=== PATIENT | female | born 1980 | race Caucasian/White ===

== ENCOUNTER 2018-11-05 13:02 | Inpatient (IN) | payer OTHER ==
--- NOTE | 2018-11-05 13:06 | PDOC ---
History of Present Illness - General Chief Complaint: Pain, Acute Stated Complaint: RIGHT ABD PAIN Time Seen by Provider: 11/05/18 13:05 History Source: Patient Exam Limitations: No Limitations - History of Present Illness Initial Comments: 11/05/18 13:27 37 yo F with no past medical history presents with RUQ beginning this AM. Per the patient, she had RLQ pain 3 days ago and was evaluated at an ED yesterday where TVUS showed ovarian cyst, free fluid, and an elevation in WBC. Today, she states the pain migrated from her RLQ to her RUQ. The pain in the RUQ is described as sharp, 10/10, radiating to the epigastric region, with 4x N/V events (NBNB). The pain does not worsen when she eats, but in the past has had less severe pain in the RUQ when she eats "fried foods". She was able to eat cereal this morning and denies constipation or diarrhea. Per the patient, she is on her period, but denies vaginal discharge. Denies the following: fevers, chills, headaches, SOB, chest pain, hx of DVT/PE, dysuria, hematuria, increased urinary frequency, diarrhea, constipation, hematochezia, and leg pain/swelling. Shx: None Allergies: NKDA Social: Denies tobacco, alcohol, and substance abuse Meds: None Past History - Past Medical History Allergies/Adverse Reactions: Allergies Allergy/AdvReac Type Severity Reaction Status Date / Time No Known Allergies Allergy Verified 11/05/18 13:03 Home Medications: Ambulatory Orders NK [No Known Home Medication] 11/05/18 Review of Systems - Review of Systems Able to Perform ROS?: Yes Is the patient limited Samoan proficient: No Constitutional: No: Chills, Diaphoresis, Fever, Weakness HEENTM: No: Eye Pain, Recent change in vision, Ear Pain, Nose Pain, Throat Pain , Mouth Pain Respiratory: No: Cough, Shortness of Breath, Hemoptysis Cardiac (ROS): No: Chest Pain, Lightheadedness, Palpitations, Syncope, Chest Tightness ABD/GI: Yes: Abdominal Distended, Nausea, Vomiting, Abdominal cramping. No: Constipated, Diarrhea, Rectal Bleeding, Tarry Stools : No: Burning, Dysuria, Hematuria, Incontinence Musculoskeletal: No: Back Pain, Joint Pain, Neck Pain Integumentary: No: Bruising, Erythema, Rash Neurological: No: Headache, Numbness, Tingling, Tremors Psychiatric: No: Change in Appetite Endocrine: No: Unexplained Weight Gain Hematologic/Lymphatic: No: Anemia *Physical Exam - Physical Exam General Appearance: Yes: Nourished, Appropriately Dressed, Obese. No: Apparent Distress, Intoxicated HEENT: positive: EOMI, TOMMY, Normal Voice, Symmetrical, Pharynx Normal, Hearing Grossly Normal. negative: Pale Conjunctivae, Scleral Icterus (R), Scleral Icterus (L), Muffled/Hoarse voice, Pharyngeal Erythema, Tonsillar Exudate, Tonsillar Erythema, Nasal Congestion, Rhinorrhea, Excessive drooling Neck: positive: Trachea midline, Supple. negative: Tender, Lymphadenopathy (R) , Lymphadenopathy (L), Tender lateral, Tender midline Respiratory/Chest: positive: Lungs Clear, Normal Breath Sounds. negative: Chest Tender, Respiratory Distress, Accessory Muscle Use, Crackles, Rales, Rhonchi, Stridor, Wheezing, Hyperresonant Cardiovascular: positive: Regular Rhythm, S1, S2, Tachycardia. negative: Systolic Murmur Gastrointestinal/Abdominal: positive: Normal Bowel Sounds, Tender (diffuse, positive murphys, worst tenderness in the RUQ upon palpation), Flat, Soft. negative: Distended, Guarding, Rebound Lymphatic: negative: Adenopathy Musculoskeletal: positive: Normal Inspection. negative: CVA Tenderness, Vertebral Tenderness Extremity: positive: Normal Capillary Refill, Normal Inspection, Normal Range of Motion. negative: Tender, Swelling, Calf Tenderness Integumentary: positive: Normal Color, Dry, Warm Neurologic: positive: mental health coordinator II-XII NML intact, Fully Oriented, Alert, Normal Mood/ Affect, Normal Response, Motor Strength 10/31 ED Treatment Course - LABORATORY CBC & Chemistry Diagram: 11/06/18 07:15 11/06/18 07:15 Medical Decision Making - Medical Decision Making 37 yo F with no past medical history presents with RUQ beginning this AM. Per the patient, she had RLQ pain 3 days ago and was evaluated at an ED yesterday where TVUS showed ovarian cyst, free fluid, and an elevation in WBC. Initial vitals; Initial Vital Signs Temp Pulse Resp BP Pulse Ox 98.3 F 116 H 18 131/93 100 11/05/18 13:03 11/05/18 13:03 11/05/18 13:03 11/05/18 13:03 11/05/18 13:03 Work up: ddx: cholelithiasis vs cholecystitis vs gastritis vs pancreatitis vs GERD vs appendicitis (lower on ddx due to RLQ pain ceasing and primarily in the RUQ), UTI vs nephrolithiasis vs pyelonephritis Laboratory Tests 11/05/18 11/05/18 11/05/18 13:32 13:32 14:09 WBC 13.4 H RBC 4.69 Hgb 12.6 Hct 38.3 MCV 81.6 MCH 27.0 MCHC 33.0 RDW 15.4 Plt Count 421 MPV 8.6 Absolute Neuts (auto) 11.7 Neutrophils % [employer] Neutrophils % (Manual) 82.0 Lymphocytes % [employer] Lymphocytes % (Manual) 11.0 Monocytes % [employer] Monocytes % (Manual) 5 Eosinophils % [employer] Eosinophils % (Manual) 2.0 Basophils % [employer] Platelet Estimate Adequate VBG pH POC VBG pCO2 POC VBG pO2 VBG HCO3 VBG O2 Sat (Gab) VBG Base Excess Sodium 139 Potassium 4.0 Chloride 105 Carbon Dioxide 18 L Anion Gap 16 BUN 15 Creatinine 0.7 Est GFR (CKD-EPI)AfAm 128.28 Est GFR (CKD-EPI)NonAf 110.69 Random Glucose 127 H Lactic Acid Calcium 9.2 Total Bilirubin 1.6 H AST 15 ALT 16 Alkaline Phosphatase 77 Total Protein 7.5 Albumin 3.5 Lipase 65 L Urine Color Red Urine Appearance Bloody Urine pH 5.5 Urine Protein 3+ H Urine Glucose (UA) Trace Urine Ketones 4+ H Urine Blood 3+ H Urine Nitrite Positive H Urine Bilirubin 3+ H Urine Urobilinogen 1.0 Ur Leukocyte Esterase Negative Urine RBC Many Urine WBC 2-5 Urine HCG, Qual Negative 11/05/18 11/05/18 15:19 15:19 WBC RBC Hgb Hct MCV MCH MCHC RDW Plt Count MPV Absolute Neuts (auto) Neutrophils % Neutrophils % (Manual) Lymphocytes % Lymphocytes % (Manual) Monocytes % Monocytes % (Manual) Eosinophils % Eosinophils % (Manual) Basophils % Platelet Estimate VBG pH 7.38 POC VBG pCO2 37.4 L POC VBG pO2 68.5 H VBG HCO3 21.3 L VBG O2 Sat (Gab) 92.8 H VBG Base Excess -2.9 L Sodium Potassium Chloride Carbon Dioxide Anion Gap BUN Creatinine Est GFR (CKD-EPI)AfAm Est GFR (CKD-EPI)NonAf Random Glucose Lactic Acid 1.3 Calcium Total Bilirubin AST ALT Alkaline Phosphatase Total Protein Albumin Lipase Urine Color Urine Appearance Urine pH Urine Protein Urine Glucose (UA) Urine Ketones Urine Blood Urine Nitrite Urine Bilirubin Urine Urobilinogen Ur Leukocyte Esterase Urine RBC Urine WBC Urine HCG, Qual Interventions: IV tylenol, fluids, reglan, zofran. 13 .4 WBC. lactic acid within normal limits. bicarb low with a 16 AG with a within normal range pH. UA shows ketones, proteins, bilirubin, and blood. negative for UTI. patient is on her menstrual cycle. US of the gallbladder reveals borderline wall thickening of the wall with biliary slude without calculi. CBD within normal limits. Patient was then administered IV contrast for elucidation of appendicitis. The CT showed a distal SBO. NG tube placed. Consult call placed to Dr. Billingsley. Admission call placed to [facility]. Patient to be transferred to [facility] given there is no OR team over the weekend and can be safely managed at [facility]. Dispo: Admit 11/06/18 09:14 *DC/Admit/Observation/Transfer Diagnosis at time of Disposition: Small bowel obstruction - Discharge Dispostion Condition at time of disposition: Stable - Referrals - Patient Instructions - Post Discharge Activity
[2018-11-05] MEDS ORDERED: ONDANSETRON 4 MG/2 ML VIAL ONE (13:14)
--- NOTE | 2018-11-05 13:20 | PDOC ---
Attending Attestation - Resident Resident Name: Travis Melendez - ED Attending Attestation I have performed the following: I have examined & evaluated the patient, The case was reviewed & discussed with the resident, I agree w/resident's findings & plan, Exceptions are as noted - HPI HPI: 11/05/18 13:17 37y F presents with RUQ that started today. Pt endorses mild lower abd discomfort starting 2-3 days ago - had gone to [place] to beevaluated, had wbc showing an elevated wbc and a pelvic US showing ovarian cysts. However the pt ntose the pain migrated from the RLQ to the RUQ, pt endorses sevearl episdoes of vomiting. denies any fever/chills, cp, sob. pt does note the pain seeems to worsen when she is eating. Pt denies any dysuria, frequencym, foul smelling urine. Currently have per period. denies hx of recent travel or sick contacts no surgical hx GENERAL: The patient is awake, alert, and fully oriented, Nontoxic - in no acute distress. HEAD: Normocephalic, atraumatic. EYES: extraocular movements intact, sclera anicteric, conjunctiva clear. ENT: Normal voice, dry mucous membranes. NECK: Normal range of motion, supple LUNGS: Breath sounds equal, clear to auscultation bilaterally. No wheezes, no rhonchi, no rales. HEART: tachycardic normal S1 and S2 without murmur, rub or gallop. ABDOMEN: mild diffuse ttp, +rovsings, +ttp at mcbur[place] point, no cva tenderness EXTREMITIES: Normal range of motion, no edema. NEUROLOGICAL: No facial assymetry, Normal speech, PSYCH: Normal mood, normal affect. SKIN: Warm, Dry, normal turgor, ddx - cholysitits, appendicitis, will ck labs will give fluids for hydration - Physicial Exam PE: 11/07/18 16:36 ee above - Medical Decision Making 11/05/18 15:33 l;abs reviewed noted for leukocytosis bicarb low - will ck vbg and lactic acid ua is nitrite +, +ketones - possibly starvation - will continue to hydrate - no glucosuria to suggest dka 11/05/18 18:14 ct cw obstruction pt currently feels well dw dr. meade and dr. jauregui will transfer to [facility] for further management
[2018-11-05] MEDS ORDERED: SODIUM CHLORIDE 1,000 ML IV STA ×2 (13:26→15:30)
[2018-11-05] MEDS ORDERED: ONDANSETRON 4 MG/2 ML VIAL IVPUSH ONE (13:26)
[2018-11-05] MEDS ORDERED: ACETAMINOPHEN 1000 MG/100 ML VIAL (NON FORMULARY) IVPB ONE (13:26)
[2018-11-05] MEDS ORDERED: ACETAMINOPHEN INJECTION 100 ML IVPB ONE (13:33)
[2018-11-05 13:49] LABS: HEMATOCRIT 38.3 % (32.4-45.2); HEMOGLOBIN 12.6 GM/dl (10.7-15.3); MEAN CELL VOLUME 81.6 fl (80-96); MEAN PLT VOLUME 8.6 fl (7.5-11.1); PLATELET COUNT 421 K/MM3 (134-434); RBC 4.69 M/mm3 (3.60-5.2); RDW 15.4 % (11.6-15.6); WHITE BLOOD COUNT 13.4 K/mm3 (4.0-10.8)
[2018-11-05 14:11] LABS: ALBUMIN 3.5 g/dl (3.4-5.0); BILIRUBIN,TOTAL 1.6 mg/dl (0.2-1); CALCIUM 9.2 mg/dl (8.5-10); CREATININE 0.7 mg/dl (0.55-1.3); TOT PROT 7.5 g/dl (6.4-8.2)
[2018-11-05 14:21] LABS: HCG,QUALITATIVE URINE NEGATIVE
[2018-11-05 14:46] LABS: PLATELET ESTIMATE ADEQUATE
[2018-11-05] MEDS ORDERED: METOCLOPRAMIDE HCL INJECTION 10 MG/2 ML VIAL IVPUSH ONE (14:59)
[2018-11-05] MEDS ORDERED: METOCLOPRAMIDE HCL INJECTION 10 MG/2 ML VIAL ONE (15:25)
[2018-11-05 17:11] LABS: VENOUS PC02 37.4 mmHg (41-51); VENOUS PH 7.38 (7.31-7.41); VENOUS PO2 68.5 mmHg (30-40)
[2018-11-05] MEDS ORDERED: SODIUM CHLORIDE 1,000 ML IV SCH (18:00)
[2018-11-05] MEDS ORDERED: LIDOCAINE HCL 2% JELLY (30 ML/TUBE) TP ONE (18:27)
[2018-11-05] MEDS ORDERED: LIDOCAINE HCL 2% JELLY (5 ML/TUBE) ONE (18:27)
--- NOTE | 2018-11-05 19:17 | PN ---
Teaching Attending Note Name of Resident: Mark Adler ATTENDING PHYSICIAN STATEMENT I saw and evaluated the patient. I reviewed the resident's note and discussed the case with the resident. I agree with the resident's findings and plan as documented. SUBJECTIVE: Patient is a 37 year old woman who presents with RUQ that started today. She also has mild lower abdominal discomfort starting 2-3 days ago - had gone to [place] to be evaluated - had elevated WBC and a Pelvic sonogram showing ovarian cysts. However the patient says the pain migrated from the RLQ to the RUQ, associated with several episodes of vomiting. Denies any fever/chills, chest pain or SOB. She says the pain seems to worsen when she is eating. Denies any dysuria, frequency or foul smelling urine. Currently having her period. Last bowel movement was 4 days ago, but she is passing flatus. No recent travel or sick contacts and no prior abdominal surgeries. OBJECTIVE: Alert Vital Signs Period Temp Pulse Resp BP Sys/Darden Pulse Ox Last 24 Hr 98.3 F-98.7 F 89-116 16-18 129-131/80-93 98-100 HEENT: No Jaundice, eye redness or discharge, PERRLA, EOMI. Normocephalic, atraumatic. External ears are normal and hearing is grossly intact. No nasal discharge. Neck: Supple, nontender. No palpable adenopathy or thyromegaly. No JVD Chest: Good effort. Clear to auscultation and percussion. Heart: Regular. No S3, rub or murmur Abdomen: Not distended, soft, diffuse tenderness and no HSM. No rebound or guarding. Normal bowel sounds. Ext: Peripheral pulses intact. No leg edema. Skin: Warm and dry. No petechiae, rash or ecchymosis. Neuro: Alert. Oriented x3. CN 2-12 grossly intact. Sensation grossly intact in all four extremities and DTR are symmetric. Psych: Appropriate mood and affect. Good insight. Current Medications Generic Name Dose Route Start Last Admin Trade Name Freq PRN Reason Stop Dose Admin Sodium Chloride 1,000 mls @ 150 mls/hr 11/05/18 18:00 11/05/18 18:00 Normal Saline - IV 150 mls/hr ASDIR JORGE Administration Home Medications Medication Instructions Recorded NK [No Known Home Medication] 11/05/18 Abnormal Lab Results 11/05/18 11/05/18 11/05/18 13:32 13:32 14:09 WBC 13.4 H POC VBG pCO2 POC VBG pO2 VBG HCO3 VBG O2 Sat (Gab) VBG Base Excess Carbon Dioxide 18 L Random Glucose 127 H Total Bilirubin 1.6 H Lipase 65 L Urine Protein 3+ H Urine Ketones 4+ H Urine Blood 3+ H Urine Nitrite Positive H Urine Bilirubin 3+ H 11/05/18 15:19 WBC POC VBG pCO2 37.4 L POC VBG pO2 68.5 H VBG HCO3 21.3 L VBG O2 Sat (Gab) 92.8 H VBG Base Excess -2.9 L Carbon Dioxide Random Glucose Total Bilirubin Lipase Urine Protein Urine Ketones Urine Blood Urine Nitrite Urine Bilirubin ASSESSMENT AND PLAN: 1. Small Bowel Obstruction - Limited abdominal sonogram showed ascites and sludge filled gall bladder. CT scan of abdomen with IV contrast showed findings consistent with distal small bowel obstruction, but did not confirm the gall bladder findings noted on the sonogram. Surgery consulted and a CT Abd/Pelvis with oral contrast being done. Due to the possibility of gall bladder disease, will treat with IV Rocephin and Flagyl, repeat WBC, trend LFTs, consult GI and consider HIDA/MRCP. Getting NGT suction and continued IV NS. CXR shows subsegmental atelectasis in left mid to lower lung and atelectasis in the right lung base. Will repeat CXR before discharge. 2. Obesity Counseled on the risks associated with obesity. Will provide patient all the necessary assistance, counseling and positive reinforcement to facilitate weight loss. Consult [facility]. 3. DVT prophylaxis - Lovenox 40 mg SQ q 12 hours. 4. Advance directives - Full code
--- NOTE | 2018-11-05 19:58 | HP ---
CHIEF COMPLAINT: pain abdomen PCP: HISTORY OF PRESENT ILLNESS: 37y F presents with RUQ that started today. Pt endorses mild lower abd discomfort starting 2-3 days ago - had gone to [place] to be evaluated, had wbc showing an elevated wbc and a pelvic US showing ovarian cysts. However the pt noticed the pain migrated from the RLQ to the RUQ, pt endorses several episdoes of vomiting brown color . denies any fever/ chills, cp, sob. pt does note the pain seems to worsen when she is eating. Pt denies any dysuria, frequency, foul smelling urine. Currently have per period. denies hx of recent travel or sick contacts. Pt states she is passing flatus and has h/o constipation last time she had bowel movement 4 days ago. No family h/o cancer, denies loss of weight and appetite no surgical history, no h/o trauma, no h/o gall stones or kidney stones ER course was notable for: (1)cbc, cmp, ct abdomen, cxr , usg abdomen (2)IV fluid. metoclopramide (3) Recent Travel: no PAST MEDICAL HISTORY: none PAST SURGICAL HISTORY: none Social History: Smoking:no Alcohol:no Drugs: no Family History: not relevant Allergies No Known Allergies Allergy (Verified 11/05/18 13:03) HOME MEDICATIONS: Home Medications Medication Instructions Recorded NK [No Known Home Medication] 11/05/18 REVIEW OF SYSTEMS CONSTITUTIONAL: Absent: fever, chills, diaphoresis, generalized weakness, malaise, loss of appetite, weight change HEENT: Absent: rhinorrhea, nasal congestion, throat pain, throat swelling, difficulty swallowing, mouth swelling, ear pain, eye pain, visual changes CARDIOVASCULAR: Absent: chest pain, syncope, palpitations, irregular heart rate, lightheadedness , peripheral edema RESPIRATORY: Absent: cough, shortness of breath, dyspnea with exertion, orthopnea, wheezing, stridor, hemoptysis GASTROINTESTINAL: Absent: abdominal pain, abdominal distension, nausea, vomiting, diarrhea, constipation, melena, hematochezia GENITOURINARY: Absent: dysuria, frequency, urgency, hesitancy, hematuria, flank pain, genital pain MUSCULOSKELETAL: Absent: myalgia, arthralgia, joint swelling, back pain, neck pain SKIN: Absent: rash, itching, pallor HEMATOLOGIC/IMMUNOLOGIC: Absent: easy bleeding, easy bruising, lymphadenopathy, frequent infections ENDOCRINE: Absent: unexplained weight gain, unexplained weight loss, heat intolerance, cold intolerance NEUROLOGIC: Absent: headache, focal weakness or paresthesias, dizziness, unsteady gait, seizure, mental status changes, bladder or bowel incontinence PSYCHIATRIC: Absent: anxiety, depression, suicidal or homicidal ideation, hallucinations. PHYSICAL EXAMINATION Vital Signs - 24 hr 11/05/18 11/05/18 11/05/18 13:03 16:07 19:20 Temperature 98.3 F 98.7 F 99.3 F Pulse Rate 116 H Pulse Rate [ 89 112 H Right] Respiratory 18 16 18 Rate Blood Pressure 131/93 Blood Pressure 129/80 132/92 [Left Arm] O2 Sat by Pulse 100 98 96 Oximetry (%) GENERAL: Awake, alert, and fully oriented, in no acute distress. HEAD: Normal with no signs of trauma. EYES: Pupils equal, round and reactive to light, extraocular movements intact, sclera anicteric, conjunctiva clear. No lid lag. EARS, NOSE, THROAT: Ears normal, nares patent, oropharynx clear without exudates. Moist mucous membranes. NECK: Normal range of motion, supple without lymphadenopathy, JVD, or masses. LUNGS: Breath sounds equal, clear to auscultation bilaterally. No wheezes, and no crackles. No accessory muscle use. HEART: Regular rate and rhythm, normal S1 and S2 without murmur, rub or gallop. ABDOMEN: Soft, generalized tender more in ruq, not distended, bowel sounds negative, no guarding, no rebound, no masses. . MUSCULOSKELETAL: Normal range of motion at all joints. No bony deformities or tenderness. No CVA tenderness. UPPER EXTREMITIES: 2+ pulses, warm, well-perfused. No cyanosis. No clubbing. No peripheral edema. LOWER EXTREMITIES: 2+ pulses, warm, well-perfused. No calf tenderness. No peripheral edema. NEUROLOGICAL: Cranial nerves II-XII intact. Normal speech. Normal gait. PSYCHIATRIC: Cooperative. Good eye contact. Appropriate mood and affect. SKIN: Warm, dry, normal turgor, no rashes or lesions noted, normal capillary refill. Laboratory Results - last 24 hr 11/05/18 11/05/18 11/05/18 13:32 13:32 14:09 WBC 13.4 H RBC 4.69 Hgb 12.6 Hct 38.3 MCV 81.6 MCH 27.0 MCHC 33.0 RDW 15.4 Plt Count 421 MPV 8.6 Absolute Neuts (auto) 11.7 Neutrophils % [employer] Neutrophils % (Manual) 82.0 Lymphocytes % [employer] Lymphocytes % (Manual) 11.0 Monocytes % [employer] Monocytes % (Manual) 5 Eosinophils % [employer] Eosinophils % (Manual) 2.0 Basophils % [employer] Platelet Estimate Adequate VBG pH POC VBG pCO2 POC VBG pO2 VBG HCO3 VBG O2 Sat (Gab) VBG Base Excess Sodium 139 Potassium 4.0 Chloride 105 Carbon Dioxide 18 L Anion Gap 16 BUN 15 Creatinine 0.7 Est GFR (CKD-EPI)AfAm 128.28 Est GFR (CKD-EPI)NonAf 110.69 Random Glucose 127 H Lactic Acid Calcium 9.2 Total Bilirubin 1.6 H AST 15 ALT 16 Alkaline Phosphatase 77 Total Protein 7.5 Albumin 3.5 Lipase 65 L Urine Color Red Urine Appearance Bloody Urine pH 5.5 Urine Protein 3+ H Urine Glucose (UA) Trace Urine Ketones 4+ H Urine Blood 3+ H Urine Nitrite Positive H Urine Bilirubin 3+ H Urine Urobilinogen 1.0 Ur Leukocyte Esterase Negative Urine RBC Many Urine WBC 2-5 Urine HCG, Qual Negative 11/05/18 11/05/18 15:19 15:19 WBC RBC Hgb Hct MCV MCH MCHC RDW Plt Count MPV Absolute Neuts (auto) Neutrophils % Neutrophils % (Manual) Lymphocytes % Lymphocytes % (Manual) Monocytes % Monocytes % (Manual) Eosinophils % Eosinophils % (Manual) Basophils % Platelet Estimate VBG pH 7.38 POC VBG pCO2 37.4 L POC VBG pO2 68.5 H VBG HCO3 21.3 L VBG O2 Sat (Gab) 92.8 H VBG Base Excess -2.9 L Sodium Potassium Chloride Carbon Dioxide Anion Gap BUN Creatinine Est GFR (CKD-EPI)AfAm Est GFR (CKD-EPI)NonAf Random Glucose Lactic Acid 1.3 Calcium Total Bilirubin AST ALT Alkaline Phosphatase Total Protein Albumin Lipase Urine Color Urine Appearance Urine pH Urine Protein Urine Glucose (UA) Urine Ketones Urine Blood Urine Nitrite Urine Bilirubin Urine Urobilinogen Ur Leukocyte Esterase Urine RBC Urine WBC Urine HCG, Qual ASSESSMENT/PLAN: 37 y/o F came to er with complaint of pain abdomen and diagnosed with bowel obstruction Small bowel obstruction IV fluid NG tube NG output monitoring NPO Monitor electrolytes surgery consult monitor vitals monitor intake output. Pain control and anti emetic prn type and screen pt/inr Fluid : LR electrolytes repeat in am nutrition npo for now dvt pro gi pro: protonix dispo: med surg. Visit type - Emergency Visit Emergency Visit: Yes ED Registration Date: 11/05/18 Care time: The patient presented to the Emergency Department on the above date and was hospitalized for further evaluation of their emergent condition. - New Patient This patient is new to me today: Yes Date on this admission: 11/06/18 - Critical Care Critical Care patient: No
[2018-11-05] MEDS ORDERED: ONDANSETRON 4 MG/2 ML VIAL IVPB PRN (22:11)
[2018-11-05] MEDS ORDERED: PANTOPRAZOLE SODIUM 40 MG VIAL IVPUSH ONE (22:11)
[2018-11-05] MEDS: LACTATED RINGERS SOLUTION 1,000 ML IV SCH (23:02)
[2018-11-06] MEDS: ACETAMINOPHEN 1000 MG/100 ML VIAL (NON FORMULARY) IVPB PRN ×3 (03:28→19:55)
[2018-11-06] MEDS: LACTATED RINGERS SOLUTION 1,000 ML IV SCH (04:38)
[2018-11-06] MEDS: HEPARIN NA (PORCINE) 5,000 UNITS/ML 1ML VIAL SQ SCH ×3 (05:48→21:10)
[2018-11-06] MEDS ORDERED: D5-1/2NS+10 MEQ KCL - 10 MEQ/1,000 ML INFUS.BAG IV SCH (06:45)
[2018-11-06 08:12] LABS: BASO % 0.4 % (0-2.0); EOS % 1.5 % (0-4.5); HEMATOCRIT 34.1 % (32.4-45.2); HEMOGLOBIN 11.1 GM/dL (10.7-15.3); LYMPH % 10.7 % (8-40); MCH 26.3 pg (25.7-33.7); MCHC 32.6 g/dl (32.0-36.0); MEAN CELL VOLUME 80.5 fl (80-96); MEAN PLT VOLUME 8.1 fl (7.5-11.1); MONO % 7.2 % (3.8-10.2); NEUT % 80.2 % (42.8-82.8); PLATELET COUNT 350 K/MM3 (134-434); RBC 4.23 M/mm3 (3.60-5.2); WHITE BLOOD COUNT 7.8 K/mm3 (4.0-10.0)
[2018-11-06 08:35] LABS: INR 1.16 (0.83-1.09); PROTHROMBIN TIME (PATIENT) 13.7 SEC (9.7-13.0)
[2018-11-06 08:37] LABS: ACTIVATED PTT 26.4 SECONDS (25.2-36.5)
--- NOTE | 2018-11-06 08:47 | PN ---
Progress Note (short form) - Note Progress Note: Patient is a 37yo female presented from [place] since patient was having nausea and vomiting with high grade SBO. As per patient , was at [facility] and was discharged from there and patient reports that she was told was her ovaries ruptured cyst and when she called her PCP , she was told to go to [facility] at [facility]. No fever or chill, c/o having LUQ pain 5/10, and stated that she was able to pass some gas. Vital Signs Temperature 98.3 F 11/06/18 06:00 Pulse Rate 95 H 11/06/18 06:00 Respiratory Rate 20 11/06/18 06:00 Blood Pressure 127/93 11/06/18 06:00 O2 Sat by Pulse Oximetry (%) 95 11/05/18 23:00 Initial Vital Signs Temp Pulse Resp BP Pulse Ox 98.3 F 116 H 18 131/93 100 11/05/18 13:03 11/05/18 13:03 11/05/18 13:03 11/05/18 13:03 11/05/18 13:03 GENERAL: Awake, alert, and fully oriented, in no acute distress. HEAD: Normal with no signs of trauma. EYES: Pupils equal, round and reactive to light, extraocular movements intact, sclera anicteric, conjunctiva clear. No lid lag. EARS, NOSE, THROAT: Ears normal, nares patent, oropharynx clear without exudates. Moist mucous membranes. NECK: Normal range of motion, supple without lymphadenopathy, JVD, or masses. LUNGS: Breath sounds equal, clear to auscultation bilaterally. No wheezes, and no crackles. No accessory muscle use. HEART: Regular rate and rhythm, normal S1 and S2 without murmur, rub or gallop. ABDOMEN: Soft, generalized tender more in ruq, not distended, bowel sounds negative, no guarding, no rebound, no masses. . MUSCULOSKELETAL: Normal range of motion at all joints. No bony deformities or tenderness. No CVA tenderness. EXTREMITIES: 2+ pulses, warm, well-perfused. No cyanosis. No clubbing. No peripheral edema. NEUROLOGICAL: Cranial nerves II-XII intact. Normal speech. Normal gait. PSYCHIATRIC: Cooperative. Good eye contact. Appropriate mood and affect. SKIN: Warm, dry, normal turgor, no rashes or lesions noted, normal capillary refill. CBCD WBC 7.8 K/mm3 (4.0-10.0) 11/06/18 07:15 RBC 4.23 M/mm3 (3.60-5.2) 11/06/18 07:15 Hgb 11.1 GM/dL (10.7-15.3) 11/06/18 07:15 Hct 34.1 % (32.4-45.2) 11/06/18 07:15 MCV 80.5 fl (80-96) 11/06/18 07:15 MCHC 32.6 g/dl (32.0-36.0) 11/06/18 07:15 RDW 16.0 % (11.6-15.6) H 11/06/18 07:15 Plt Count 350 K/MM3 (134-434) 11/06/18 07:15 MPV 8.1 fl (7.5-11.1) 11/06/18 07:15 CMP Sodium 140 mmol/L (136-145) 11/06/18 07:15 Potassium 3.8 mmol/L (3.5-5.1) 11/06/18 07:15 Chloride 107 mmol/L (98-107) 11/06/18 07:15 Carbon Dioxide 24 mmol/L (21-32) 11/06/18 07:15 Anion Gap 9 MMOL/L (8-16) 11/06/18 07:15 BUN 14 mg/dL (7-18) 11/06/18 07:15 Creatinine 0.5 mg/dL (0.55-1.3) L 11/06/18 07:15 Random Glucose 98 mg/dL (74-106) 11/06/18 07:15 Calcium 8.4 mg/dL (8.5-10.1) L 11/06/18 07:15 Total Bilirubin 1.2 mg/dL (0.2-1) H 11/06/18 07:15 AST 8 U/L (15-37) L 11/06/18 07:15 ALT 14 U/L (13-61) 11/06/18 07:15 Alkaline Phosphatase 69 U/L (45-117) 11/06/18 07:15 Total Protein 6.3 g/dl (6.4-8.2) L 11/06/18 07:15 Albumin 2.7 g/dl (3.4-5.0) L 11/06/18 07:15 Current Medications Generic Name Dose Route Start Last Admin Trade Name Freq PRN Reason Stop Dose Admin Acetaminophen 1,000 mg 11/05/18 22:10 11/06/18 03:28 Ofirmev Injection - IVPB 1,000 mg Q6H PRN Administration PAIN LEVEL 6-10 Heparin Sodium (Porcine) 5,000 unit 11/06/18 06:00 11/06/18 05:48 Heparin - SQ 5,000 unit TID JORGE Administration Sodium Chloride 1,000 mls @ 150 mls/hr 11/05/18 18:00 11/05/18 18:00 Normal Saline - IV 150 mls/hr ASDIR JORGE Administration Ceftriaxone Sodium 1 gm/ 50 mls @ 100 mls/hr 11/06/18 10:00 Dextrose IVPB DAILY JORGE Metronidazole 500 mg in 100 mls @ 100 mls/hr 11/06/18 10:00 Flagyl 500mg Premixed Ivpb - IVPB Q8H-IV JORGE Potassium Chloride/Dextrose/Sod Cl 10 meq in 1,000 mls @ 125 mls/hr 11/06/18 06:45 11/06/18 06:55 D5-1/2ns+10 Meq Kcl - IV 125 mls/hr ASDIR JORGE Administration Ondansetron HCl 8 mg 11/05/18 22:11 Zofran Injection IVPB Q8H PRN NAUSEA Home Medications Medication Instructions Recorded NK [No Known Home Medication] 11/05/18 CT Abdomen and pelvis: There is a small right pleural effusion also noted. A small amount of ascites is noted within the upper abdomen. There are moderately distended loops of small bowel throughout the abdomen and pelvis. Air and stool is seen within a nondistended right colon. An air-filled transverse colon is noted. The left colon is largely collapsed. This appearance is consistent with a high-grade partial SBO that has not significantly changed since a prior study of earlier in the day. The etiology of the obstruction is uncertain. The site of obstruction is most likely within the right lower quadrant but cannot be definitely determined, as well as. The liver, spleen, pancreas, adrenal glands and kidneys demonstrate no significant abnormalities. There is no evidence of pneumoperitoneum or intra-abdominal abscess. Examination of the pelvis demonstrates an enlarged uterus that most likely represents leiomyomata. There appears to be a cystic right adnexal mass, but, this is difficult to differentiate from the distended bowel loops. Pelvic ultrasonography may be warranted. There is no evidence of acute bony pathology. IMPRESSION: Findings consistent with high-grade, partial SBO that has not significantly changed since a prior study of earlier in the day. Clinical correlation and continued follow-up recommended. Please see above discussion. Reported By: Delvin Teran MD 11/06/18 0847 ASSESSMENT/PLAN: 37 y/o F came to er with complaint of pain abdomen and diagnosed with bowel obstruction # High grade partial SBO : surgeon is on the case. Gi on the case Dr. Chen seen the patient today, will send for abdominal series. Ng tube in place, monitor I's and O's. will add incentive spirometer once patient is able to do it since reported atelectasis on CT of abdomen and pelvis. LR ,IVF continue, monitor Is and Os. Ct abdomen and pelvis as above. will discontinue IV antibiotic Rocephin and Flagyl , discussed with GI. # Enlarged Uterus ; Leimyomata: reported on CT scan DVT Px: heparin sq gi px: protonix follow abdomen series. Visit type - Emergency Visit Emergency Visit: Yes ED Registration Date: 11/05/18 Care time: The patient presented to the Emergency Department on the above date and was hospitalized for further evaluation of their emergent condition. - New Patient This patient is new to me today: Yes Date on this admission: 11/06/18 - Critical Care Critical Care patient: No - Discharge Referral Referred to [facility] No
[2018-11-06 08:52] LABS: ALBUMIN 2.7 g/dl (3.4-5.0); BILIRUBIN,TOTAL 1.2 mg/dL (0.2-1); CALCIUM 8.4 mg/dL (8.5-10.1); CREATININE 0.5 mg/dL (0.55-1.3); MAGNESIUM 2.1 mg/dL (1.8-2.4); PHOSPHOROUS 2.8 mg/dL (2.5-4.9); POTASSIUM 3.8 mmol/L (3.5-5.1); TOT PROT 6.3 g/dl (6.4-8.2)
[2018-11-06] MEDS ORDERED: DEXTROSE 5%-WATER - 50 ML IVPB ONE (09:32)
[2018-11-06] MEDS ORDERED: cefTRIAXone SODIUM 1 GM VIAL ONE (09:32)
[2018-11-06] MEDS ORDERED: CEFTRIAXONE 1 GM in DEXTROSE 5%-WATER - 50 ML IVPB SCH (10:00)
--- NOTE | 2018-11-06 10:15 | CONSULT ---
- Consultation REQUESTING PROVIDER: Nora BURKS CONSULT REQUEST: We have been asked to surgically evaluate this patient for nausea and vomiting and abdominal pain. PCP:Cristhian Howard HISTORY OF PRESENT ILLNESS: ROXANE who is a 37 y/o W female who presented to the [facility] ER 11/05/18 w/recurrent abdominal pain and 24 hours previously to [place] for the same where she was txed and released; she had persistent n/v/abdominal pain which is crampy and came here; she has a h/o an ovarian cyst for which she was advised surgery and a h/o dysmenorrhea; pain/cramps improved since admission ; she has passed some gas;she denies any other GI//ENGAGEMENT DIRECTOR c/o; she recently started OCP's. PMHx: none PSHx: none Home Medications Medication Instructions Recorded NK [No Known Home Medication] 11/05/18 Allergies Allergy/AdvReac Type Severity Reaction Status Date / Time No Known Allergies Allergy Verified 11/05/18 13:03 PHYSICAL EXAM: GENERAL: Awake, alert, and fully oriented, in no acute distress. HEAD: Normal with no signs of trauma. EYES: PERRL, sclera anicteric, conjunctiva clear. ABDOMEN: Soft, slight tenderness RUQ, not distended, paucity of bowel sounds, no guarding, no rebound, no masses. No organomegaly. No hernias; no masses. MUSCULOSKELETAL: Normal ROM at all joints. No bony deformities or tenderness. No CVA tenderness. UPPER EXTREMITIES: 2+ pulses, warm, well-perfused. No cyanosis. Cap refill <2 seconds. No peripheral edema. LOWER EXTREMITIES: 2+ pulses, warm, well-perfused. No calf tenderness. No peripheral edema. NEUROLOGICAL: Normal speech, gait not observed. PSYCH: Cooperative. Good eye contact. Appropriate mood and affect. SKIN: Warm, dry, normal turgor, no rashes or lesions noted. Vital Signs Temperature 98.3 F 11/06/18 06:00 Pulse Rate 95 H 11/06/18 06:00 Respiratory Rate 20 11/06/18 06:00 Blood Pressure 127/93 11/06/18 06:00 O2 Sat by Pulse Oximetry (%) 95 11/05/18 23:00 Lab Results WBC 7.8 K/mm3 (4.0-10.0) 11/06/18 07:15 RBC 4.23 M/mm3 (3.60-5.2) 11/06/18 07:15 Hgb 11.1 GM/dL (10.7-15.3) 11/06/18 07:15 Hct 34.1 % (32.4-45.2) 11/06/18 07:15 MCV 80.5 fl (80-96) 11/06/18 07:15 MCHC 32.6 g/dl (32.0-36.0) 11/06/18 07:15 RDW 16.0 % (11.6-15.6) H 11/06/18 07:15 Plt Count 350 K/MM3 (134-434) 11/06/18 07:15 Sodium 140 mmol/L (136-145) 11/06/18 07:15 Potassium 3.8 mmol/L (3.5-5.1) 11/06/18 07:15 Chloride 107 mmol/L (98-107) 11/06/18 07:15 Carbon Dioxide 24 mmol/L (21-32) 11/06/18 07:15 Anion Gap 9 MMOL/L (8-16) 11/06/18 07:15 BUN 14 mg/dL (7-18) 11/06/18 07:15 Creatinine 0.5 mg/dL (0.55-1.3) L 11/06/18 07:15 Random Glucose 98 mg/dL (74-106) 11/06/18 07:15 Calcium 8.4 mg/dL (8.5-10.1) L 11/06/18 07:15 INR 1.16 (0.83-1.09) H 11/06/18 07:15 W/U to date reviewed including CT scans and US and blood work. IMP: ? partial SBO ? of ?? origin; no evidence of an acute surgical abdomen PLAN: NPO/IVF/NGT/serial exams and imaging studies; will f/u d/w the patient in depth. Danis Billingsley MD FACS
--- NOTE | 2018-11-06 11:26 | CON.GI ---
Consult Consult Specialty:: GI Referred by:: Dr Howard Reason for Consultation:: SBO - History of Present Illness Chief Complaint: Abdominal pain x 6 days History of Present Illness: 37 y.o. F developed abdominal pain 6 days ago, getting worse over last couple of days. Last BM 5 days ago. Seen in ER here, CT scan shows a high grade SBO without a clearly defined transition point. Colon and T.I. appear decompressed; small amount of free fluid also present. Patient is obese, no history of recent weight loss, no fevers or diarrhea to suggest Crohn's disease. Has been on NG suction since admission. States she passed small amount of flatus this a.m. - History Source History Provided By: Patient, Medical Record Limitations to Obtaining History: No Limitations - Past Medical History ...LMP: 10/30/18 ...: No - Alcohol/Substance Use Hx Alcohol Use: Yes (OCASIONAL) - Smoking History Smoking history: Never smoked Home Medications - Allergies Allergies/Adverse Reactions: Allergies Allergy/AdvReac Type Severity Reaction Status Date / Time No Known Allergies Allergy Verified 11/05/18 13:03 - Home Medications Home Medications: Ambulatory Orders NK [No Known Home Medication] 11/05/18 Physical Exam-GI Vital Signs: Vital Signs Temperature 98.3 F 11/06/18 06:00 Pulse Rate 95 H 11/06/18 06:00 Respiratory Rate 20 11/06/18 06:00 Blood Pressure 127/93 11/06/18 06:00 O2 Sat by Pulse Oximetry (%) 95 11/05/18 23:00 Constitutional: Yes: Obese ...Auscultate: Yes: Hypoactive Bowel Sounds ...Palpate: Yes: Tenderness (Mild tenderness diffusely, no rebound tenderness.) Labs: CBC, BMP 11/06/18 07:15 11/06/18 07:15 INR, PTT INR 1.16 (0.83-1.09) H 11/06/18 07:15 Imaging - Results Cat Scan: Report Reviewed, Image Reviewed Assessment/Plan SBO without any previous surgery, no history of past abdominal or pelvic infection. Concern exists for malignancy as well as the "usual suspects" of adhesions. Would continue NG suction. Once bowel is decompressed we might be able to get a better picture of the transition point with a small bowel series or a CT enterography. Case discussed with Dr Howard.
[2018-11-06] MEDS: LACTATED RINGERS SOLUTION 1,000 ML/1,000 ML INFUS.BAG IV SCH (16:53)
[2018-11-07] MEDS: LACTATED RINGERS SOLUTION 1,000 ML/1,000 ML INFUS.BAG IV SCH ×2 (01:54→15:43)
[2018-11-07] MEDS: HEPARIN NA (PORCINE) 5,000 UNITS/ML 1ML VIAL SQ SCH ×3 (06:06→21:37)
--- NOTE | 2018-11-07 10:26 | PN ---
Physical Exam: SUBJECTIVE: Patient seen and examined lying comfortably in bed states she 3-4 bowel movements today but still not passing flatus. Ng is situ total ouptut in container shows 800 OBJECTIVE: Vital Signs Period Temp Pulse Resp BP Sys/Darden Pulse Ox Last 24 Hr 98.2 F-99.4 F 80-93 16-20 118-145/75-90 GENERAL: The patient is awake, alert, and fully oriented, in no acute distress. ENT: dry mucous membranes. NECK: Trachea midline, full range of motion, supple. LUNGS: Breath sounds equal, clear to auscultation bilaterally, no wheezes, no crackles, no accessory muscle use. HEART: Regular rate and rhythm, S1, S2 without murmur, rub or gallop. ABDOMEN: Soft, nontender, bowel sounds negative , no guarding, no rebound, EXTREMITIES: 2+ pulses, warm, well-perfused, no edema. NEUROLOGICAL: Cranial nerves II through XII grossly intact. Normal speech, gait not observed. PSYCH: Normal mood, normal affect. SKIN: Warm, dry, Laboratory Results - last 24 hr 11/06/18 11/06/18 07:15 12:10 Blood Type O POSITIVE O POSITIVE Antibody Screen Negative Active Medications Generic Name Dose Route Start Last Admin Trade Name Freq PRN Reason Stop Dose Admin Acetaminophen 1,000 mg 11/05/18 22:10 11/06/18 19:55 Ofirmev Injection - IVPB 1,000 mg Q6H PRN Administration PAIN LEVEL 6-10 Heparin Sodium (Porcine) 5,000 unit 11/06/18 06:00 11/07/18 06:06 Heparin - SQ 5,000 unit TID JORGE Administration Lactated Ringer's 1,000 ml in 1,000 mls @ 125 mls/hr 11/06/18 11:45 11/07/18 01:54 Lactated Ringers Solution IV 125 mls/hr ASDIR JORGE Administration Potassium Chloride 10 meq in 100 mls @ 100 mls/hr 11/07/18 10:00 Potassium Chloride 10 Meq Premix Ivpb - IVPB 11/07/18 12:59 Q60M JORGE ASSESSMENT/PLAN: 37 y/o F came to er with complaint of pain abdomen and diagnosed with bowel obstruction Small bowel obstruction IV fluid NG output monitoring NPO Monitor electrolytes 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 Pain control and anti emetic prn try to keep k around 4.5 xray abdomen shows dilated gut loops with multiple air/fluid shadows Fluid : LR electrolytes repeat in am nutrition npo for now dvt pro dispo: med surg. Visit type - Emergency Visit Emergency Visit: Yes ED Registration Date: 11/05/18 Care time: The patient presented to the Emergency Department on the above date and was hospitalized for further evaluation of their emergent condition. - New Patient This patient is new to me today: No - Critical Care Critical Care patient: No
--- NOTE | 2018-11-07 10:38 | PN ---
Progress Note (short form) - Note Progress Note: Pt feels better this a.m. Says she had a small BM. FUA this morning (reviewed by me, no report available): persistent SBO with air- fluid levels. Some contrast has made it into colon. Plan: Continue NG suction. Surgical follow-up.
[2018-11-07] MEDS: KCL 10 MEQ IVPB 10 MEQ/100 ML INFUS.BAG IVPB SCH ×3 (11:19→20:34)
--- NOTE | 2018-11-07 15:13 | PN ---
Progress Note (short form) - Note Progress Note: Attending Surgeon Passing gas and had a BM; no c/o pain VSS AF abdo-soft; non tender Radiology-some contrast in right colon h/e SBO persists ?? IMP:SBO; ? partial of ? etiology PLAN: Continue present tx. as per orders; d/w patient and her mother. Danis Billingsley MD FACS
--- NOTE | 2018-11-07 15:40 | PN ---
Teaching Attending Note Name of Resident: Mark Adler ATTENDING PHYSICIAN STATEMENT I saw and evaluated the patient. I reviewed the resident's note and discussed the case with the resident. I agree with the resident's findings and plan as documented. SUBJECTIVE: Patient states that she feels comfortable today , canister around 800ml bilious drainage per NG tube. no fever or chill, stated that she had a bowel movement; very small amount. OBJECTIVE: Vital Signs Temperature 98.7 F 11/07/18 15:02 Pulse Rate 87 11/07/18 15:02 Respiratory Rate 18 11/07/18 15:02 Blood Pressure 138/87 11/07/18 15:02 O2 Sat by Pulse Oximetry (%) 95 11/07/18 09:00 GENERAL: Awake, alert, and fully oriented, in no acute distress. HEAD: Normal with no signs of trauma. EYES: Pupils equal, round and reactive to light, extraocular movements intact, sclera anicteric, conjunctiva clear. EARS, NOSE, THROAT: Ears normal, positive for NG-tube to low suction , Moist mucous membranes. NECK: Normal range of motion, supple without lymphadenopathy, JVD, or masses. LUNGS: Breath sounds equal, clear to auscultation bilaterally. No wheezes, and no crackles. No accessory muscle use. HEART: Regular rate and rhythm, normal S1 and S2 without murmur, rub or gallop. ABDOMEN: Soft, NT today , not distended, bowel sounds negative, no guarding, no rebound, no masses. . MUSCULOSKELETAL: Normal range of motion at all joints. No bony deformities or tenderness. No CVA tenderness. EXTREMITIES: 2+ pulses, warm, well-perfused. No cyanosis. No clubbing. No peripheral edema. NEUROLOGICAL: Cranial nerves II-XII intact. Normal speech. Normal gait. SKIN: Warm, dry, normal turgor, no rashes or lesions noted, normal capillary refill. CBCD WBC 7.8 K/mm3 (4.0-10.0) 11/06/18 07:15 RBC 4.23 M/mm3 (3.60-5.2) 11/06/18 07:15 Hgb 11.1 GM/dL (10.7-15.3) 11/06/18 07:15 Hct 34.1 % (32.4-45.2) 11/06/18 07:15 MCV 80.5 fl (80-96) 11/06/18 07:15 MCHC 32.6 g/dl (32.0-36.0) 11/06/18 07:15 RDW 16.0 % (11.6-15.6) H 11/06/18 07:15 Plt Count 350 K/MM3 (134-434) 11/06/18 07:15 MPV 8.1 fl (7.5-11.1) 11/06/18 07:15 CMP Sodium 140 mmol/L (136-145) 11/06/18 07:15 Potassium 3.8 mmol/L (3.5-5.1) 11/06/18 07:15 Chloride 107 mmol/L (98-107) 11/06/18 07:15 Carbon Dioxide 24 mmol/L (21-32) 11/06/18 07:15 Anion Gap 9 MMOL/L (8-16) 11/06/18 07:15 BUN 14 mg/dL (7-18) 11/06/18 07:15 Creatinine 0.5 mg/dL (0.55-1.3) L 11/06/18 07:15 Random Glucose 98 mg/dL (74-106) 11/06/18 07:15 Calcium 8.4 mg/dL (8.5-10.1) L 11/06/18 07:15 Total Bilirubin 1.2 mg/dL (0.2-1) H 11/06/18 07:15 AST 8 U/L (15-37) L 11/06/18 07:15 ALT 14 U/L (13-61) 11/06/18 07:15 Alkaline Phosphatase 69 U/L (45-117) 11/06/18 07:15 Total Protein 6.3 g/dl (6.4-8.2) L 11/06/18 07:15 Albumin 2.7 g/dl (3.4-5.0) L 11/06/18 07:15 Current Medications Generic Name Dose Route Start Last Admin Trade Name Freq PRN Reason Stop Dose Admin Acetaminophen 1,000 mg 11/05/18 22:10 11/06/18 19:55 Ofirmev Injection - IVPB 1,000 mg Q6H PRN Administration PAIN LEVEL 6-10 Heparin Sodium (Porcine) 5,000 unit 11/06/18 06:00 11/07/18 15:08 Heparin - SQ 5,000 unit TID JORGE Administration Lactated Ringer's 1,000 ml in 1,000 mls @ 125 mls/hr 11/06/18 11:45 11/07/18 01:54 Lactated Ringers Solution IV 125 mls/hr ASDIR JORGE Administration Home Medications Medication Instructions Recorded NK [No Known Home Medication] 11/05/18 CT Abdomen and pelvis: There is a small right pleural effusion also noted. A small amount of ascites is noted within the upper abdomen. There are moderately distended loops of small bowel throughout the abdomen and pelvis. Air and stool is seen within a nondistended right colon. An air-filled transverse colon is noted. The left colon is largely collapsed. This appearance is consistent with a high-grade partial SBO that has not significantly changed since a prior study of earlier in the day. The etiology of the obstruction is uncertain. The site of obstruction is most likely within the right lower quadrant but cannot be definitely determined, as well as. The liver, spleen, pancreas, adrenal glands and kidneys demonstrate no significant abnormalities. There is no evidence of pneumoperitoneum or intra-abdominal abscess. Examination of the pelvis demonstrates an enlarged uterus that most likely represents leiomyomata. There appears to be a cystic right adnexal mass, but, this is difficult to differentiate from the distended bowel loops. Pelvic ultrasonography may be warranted. There is no evidence of acute bony pathology. IMPRESSION: Findings consistent with high-grade, partial SBO that has not significantly changed since a prior study of earlier in the day. Clinical correlation and continued follow-up recommended. Please see above discussion. Reported By: Delvin Teran MD 11/06/18 0847 ASSESSMENT/PLAN: 37 y/o F came to er with complaint of pain abdomen and diagnosed with bowel obstruction Patient is a 37yo female presented from [place] since patient was having nausea and vomiting with high grade SBO. As per patient, was at [facility] and was discharged from there for having ovarian ruptured cyst and was told to go to [facility].admitted for having High grade SBO. # High grade partial SBO : is drainging on low suction continues , surgeon /GI, Dr. Chen. continue NG-tube to low continues suction, monitor I' s and O's. continue LR ,IVF continue. Ct abdomen and pelvis as above. discussed with will monitor for another day , will repeat the Xray of abdomen. # Enlarged Uterus ; Leimyomata: reported on CT scan DVT Px: heparin sq gi px: protonix follow abdomen series.
[2018-11-08] MEDS: HEPARIN NA (PORCINE) 5,000 UNITS/ML 1ML VIAL SQ SCH ×2 (06:07→15:20)
[2018-11-08 06:37] LABS: BASO % 0.7 % (0-2.0); EOS % 4.8 % (0-4.5); HEMATOCRIT 30.8 % (32.4-45.2); HEMOGLOBIN 10.1 GM/dL (10.7-15.3); MCH 26.3 pg (25.7-33.7); MCHC 32.9 g/dl (32.0-36.0); MEAN PLT VOLUME 7.5 fl (7.5-11.1); MONO % 7.1 % (3.8-10.2); NEUT % 68.4 % (42.8-82.8); PLATELET COUNT 335 K/MM3 (134-434); RBC 3.85 M/mm3 (3.60-5.2); RDW 15.7 % (11.6-15.6); WHITE BLOOD COUNT 5.6 K/mm3 (4.0-10.0)
[2018-11-08 07:11] LABS: ALBUMIN 2.5 g/dl (3.4-5.0); BILIRUBIN,TOTAL 0.5 mg/dL (0.2-1); CREATININE 0.4 mg/dL (0.55-1.3); POTASSIUM 3.4 mmol/L (3.5-5.1); TOT PROT 5.6 g/dl (6.4-8.2)
[2018-11-08] MEDS: KCL 10 MEQ IVPB 10 MEQ/100 ML INFUS.BAG IVPB SCH ×2 (10:00→11:51)
--- NOTE | 2018-11-08 10:00 | EKG ---
Test Reason : Blood Pressure : / mmHG Vent. Rate : 101 BPM Atrial Rate : 101 BPM P-R Int : 144 ms QRS Dur : 082 ms QT Int : 350 ms P-R-T Axes : 031 014 -20 degrees QTc Int : 453 ms SINUS TACHYCARDIA T WAVE ABNORMALITY, CONSIDER INFERIOR ISCHEMIA ABNORMAL ECG NO PREVIOUS ECGS AVAILABLE Confirmed by RODRIGO ALEXANDER MD ([id number]) on 11/08/2018 10:00:40 AM Referred By: MD MACK Confirmed By:RODRIGO ALEXANDER MD
[2018-11-08 10:24] LABS: ANISOCYTOSIS 1+; MACROCYTOSIS 0; OVALOCYTE 1+; PLATELET ESTIMATE NORMAL
[2018-11-08] MEDS: LACTATED RINGERS SOLUTION 1,000 ML/1,000 ML INFUS.BAG IV SCH ×2 (10:27→12:31)
[2018-11-08] MEDS ORDERED: POTASSIUM CHLORIDE TABS 20 MEQ TABLET.ER (FP) PO ONE (12:08)
[2018-11-08 12:20] VITALS: BMI 42.1
--- NOTE | 2018-11-08 13:25 | PN ---
Progress Note (short form) - Note Progress Note: GI follow up Patient seen and examined Labs reviewed NGT out Tolerating PO liquids Less abdominal pain +flatus, 2 bm since yesterday Vital Signs Temp 98.5 F 11/08/18 05:00 Pulse 87 11/08/18 05:00 Resp 20 11/08/18 05:00 BP 122/68 11/08/18 05:00 Pulse Ox 95 11/07/18 09:00 NAD obese soft NT ND CBC, BMP 11/08/18 05:30 11/08/18 05:30 AXR reviewed, less prominent but still dilated small bowel loops Impression: SBO in a virgin abdomen, resolving - advance diet as tolerated - should have GI/surgical follow up on discharge
--- NOTE | 2018-11-08 13:28 | PN ---
Progress Note (short form) - Note Progress Note: 37yo F h/o SBO seen and examined at bedside. Pt currently states that she feels well, denies any abd pain or nausea. Pt has NGT in place with serous drainage. Pt denies any fever, chills. Last Vital Signs Temp Pulse Resp BP Pulse Ox 98.5 F 87 20 122/68 95 11/08/18 05:00 11/08/18 05:00 11/08/18 05:00 11/08/18 05:00 11/07/18 09:00 CBC, BMP 11/08/18 05:30 11/08/18 05:30 PE: Gen: a&O x3 Resp: breathing comfortably Abd: soft, nontender, nondistended NGT in place with yellow drainage. Problem List - Problems (1) Small bowel obstruction Assessment/Plan: Plan -pt abd appears completely benign will remove NGT bedside and start on clears. -may adv diet as tolerated and consider discharge later today if tolerating as pt is anxious to go home. -f/up abd xray -will follow Case discussed with Dr. Billingsley who agrees with plan Code(s): K56.609 - UNSP INTESTNL OBST, UNSP TO PARTIAL VERSUS COMPLETE OBST
--- NOTE | 2018-11-08 14:09 | PN ---
Progress Note (short form) - Note Progress Note: Attending Surgeon Seen in f/u; passing flatus and BM; tolerated clear liquids VSS AF abdo-soft; NT not distended; non tympanitic IMP: improved PLAN:Advance diet as tolerated. Danis Billingsley MD FACS
--- NOTE | 2018-11-08 14:13 | PN ---
Teaching Attending Note Name of Resident: Orlin Nowak ATTENDING PHYSICIAN STATEMENT I saw and evaluated the patient. I reviewed the resident's note and discussed the case with the resident. I agree with the resident's findings and plan as documented. SUBJECTIVE: Patient is feeling better, tolerating diet with no acute distress. OBJECTIVE: Vital Signs Temperature 98.4 F 11/08/18 09:00 Pulse Rate 71 11/08/18 09:00 Respiratory Rate 20 11/08/18 09:00 Blood Pressure 140/79 11/08/18 09:00 O2 Sat by Pulse Oximetry (%) 98 11/08/18 09:00 GENERAL: Awake, alert, and fully oriented, in no acute distress. HEAD: Normal with no signs of trauma. EYES: Pupils equal, round and reactive to light, extraocular movements intact, sclera anicteric, conjunctiva clear. EARS, NOSE, THROAT: Ears normal, positive for NG-tube to low suction , Moist mucous membranes. NECK: Normal range of motion, supple without lymphadenopathy, JVD, or masses. LUNGS: Breath sounds equal, clear to auscultation bilaterally. No wheezes, and no crackles. No accessory muscle use. HEART: Regular rate and rhythm, normal S1 and S2 without murmur, rub or gallop. ABDOMEN: Soft, NT today , not distended, bowel sounds positive, no guarding, no rebound, no masses. MUSCULOSKELETAL: Normal range of motion at all joints. No bony deformities or tenderness. No CVA tenderness. EXTREMITIES: 2+ pulses, warm, well-perfused. No cyanosis. No clubbing. No peripheral edema. NEUROLOGICAL: Cranial nerves II-XII intact. Normal speech. Normal gait. SKIN: Warm, dry, normal turgor, no rashes or lesions noted, normal capillary refill. CBCD WBC 5.6 K/mm3 (4.0-10.0) 11/08/18 05:30 RBC 3.85 M/mm3 (3.60-5.2) 11/08/18 05:30 Hgb 10.1 GM/dL (10.7-15.3) L 11/08/18 05:30 Hct 30.8 % (32.4-45.2) L 11/08/18 05:30 MCV 80.0 fl (80-96) 11/08/18 05:30 MCHC 32.9 g/dl (32.0-36.0) 11/08/18 05:30 RDW 15.7 % (11.6-15.6) H 11/08/18 05:30 Plt Count 335 K/MM3 (134-434) 11/08/18 05:30 MPV 7.5 fl (7.5-11.1) 11/08/18 05:30 CMP Sodium 141 mmol/L (136-145) 11/08/18 05:30 Potassium 3.4 mmol/L (3.5-5.1) L 11/08/18 05:30 Chloride 107 mmol/L (98-107) 11/08/18 05:30 Carbon Dioxide 25 mmol/L (21-32) 11/08/18 05:30 Anion Gap 9 MMOL/L (8-16) 11/08/18 05:30 BUN 12 mg/dL (7-18) 11/08/18 05:30 Creatinine 0.4 mg/dL (0.55-1.3) L 11/08/18 05:30 Random Glucose 78 mg/dL (74-106) 11/08/18 05:30 Calcium 8.0 mg/dL (8.5-10.1) L 11/08/18 05:30 Total Bilirubin 0.5 mg/dL (0.2-1) 11/08/18 05:30 AST 10 U/L (15-37) L 11/08/18 05:30 ALT 11 U/L (13-61) L 11/08/18 05:30 Alkaline Phosphatase 59 U/L (45-117) 11/08/18 05:30 Total Protein 5.6 g/dl (6.4-8.2) L 11/08/18 05:30 Albumin 2.5 g/dl (3.4-5.0) L 11/08/18 05:30 Current Medications Generic Name Dose Route Start Last Admin Trade Name Freq PRN Reason Stop Dose Admin Acetaminophen 1,000 mg 11/05/18 22:10 11/06/18 19:55 Ofirmev Injection - IVPB 1,000 mg Q6H PRN Administration PAIN LEVEL 6-10 Heparin Sodium (Porcine) 5,000 unit 11/06/18 06:00 11/08/18 06:07 Heparin - SQ 5,000 unit TID JORGE Administration Lactated Ringer's 1,000 ml in 1,000 mls @ 125 mls/hr 11/06/18 11:45 11/08/18 12:31 Lactated Ringers Solution IV Not Given [facility] Home Medications Medication Instructions Recorded NK [No Known Home Medication] 11/05/18 CT Abdomen and pelvis: There is a small right pleural effusion also noted. A small amount of ascites is noted within the upper abdomen. There are moderately distended loops of small bowel throughout the abdomen and pelvis. Air and stool is seen within a nondistended right colon. An air-filled transverse colon is noted. The left colon is largely collapsed. This appearance is consistent with a high-grade partial SBO that has not significantly changed since a prior study of earlier in the day. The etiology of the obstruction is uncertain. The site of obstruction is most likely within the right lower quadrant but cannot be definitely determined, as well as. The liver, spleen, pancreas, adrenal glands and kidneys demonstrate no significant abnormalities. There is no evidence of pneumoperitoneum or intra-abdominal abscess. Examination of the pelvis demonstrates an enlarged uterus that most likely represents leiomyomata. There appears to be a cystic right adnexal mass, but, this is difficult to differentiate from the distended bowel loops. Pelvic ultrasonography may be warranted. There is no evidence of acute bony pathology. IMPRESSION: Findings consistent with high-grade, partial SBO that has not significantly changed since a prior study of earlier in the day. Clinical correlation and continued follow-up recommended. Please see above discussion. Reported By: Delvin Teran MD 11/06/18 0847 ASSESSMENT/PLAN: 37 y/o F came to er with complaint of pain abdomen and diagnosed with bowel obstruction Patient is a 37yo female presented from [place] since patient was having nausea and vomiting with high grade SBO. As per patient, was at [facility] and was discharged from there for having ovarian ruptured cyst and was told to go to [facility].admitted for having High grade SBO. # High grade partial SBO : improved on clear ,full liquid diet , will discharge the patient after having early dinner. discussed with surgeon /GI, Dr. Chen.NG-tube is removed as per surgeon .repeat the Xray of abdomen improved . abdominal flat and upright less prominent Small bowel distention. no free air noted. if continues to tolerate diet will discharge the patient. # Enlarged Uterus ; Leimyomata: reported on CT scan DVT Px: heparin sq gi px: protonix
--- NOTE | 2018-11-08 15:09 | EKG ---
Test Reason : Blood Pressure : / mmHG Vent. Rate : 072 BPM Atrial Rate : 072 BPM P-R Int : 152 ms QRS Dur : 092 ms QT Int : 414 ms P-R-T Axes : 032 001 001 degrees QTc Int : 453 ms NORMAL SINUS RHYTHM WITH SINUS ARRHYTHMIA T WAVE ABNORMALITY, CONSIDER ANTERIOR ISCHEMIA ABNORMAL ECG WHEN COMPARED WITH ECG OF 05-NOV-2018 18:31, NO SIGNIFICANT CHANGE WAS FOUND Confirmed by RODRIGO ALEXANDER MD ([id number]) on 11/08/2018 3:09:00 PM Referred By: VANESSA SHERMAN Confirmed By:RODRIGO ALEXANDER MD
--- NOTE | 2018-11-08 16:48 | DS ---
Physical Exam: SUBJECTIVE: Patient seen and examined at bedside. abd improved, tolerating PO + BMs. no acute events. denies n/v/d, cp ,fever, chills OBJECTIVE: Vital Signs Period Temp Pulse Resp BP Sys/Darden Pulse Ox Last 24 Hr 98.2 F-98.9 F 60-87 20-20 122-141/62-86 98 PHYSICAL EXAM GENERAL: AOX3 NAD HEAD: Normal with no signs of trauma. EYES: Pupils equal, round and reactive to light, extraocular movements intact, sclera anicteric, conjunctiva clear. EARS, NOSE, THROAT: Ears normal, positive for NG-tube to low suction , Moist mucous membranes. NECK: Normal range of motion, supple without lymphadenopathy, JVD, or masses. LUNGS: CTAB HEART: RRR, normal S1 and S2 without murmur, rub or gallop. ABDOMEN: Soft, NT ND, bowel sounds positive, no guarding, no rebound, no masses. MUSCULOSKELETAL: Normal range of motion at all joints. No bony deformities or tenderness. No CVA tenderness. EXTREMITIES: 2+ pulses, warm, well-perfused. No cyanosis. No clubbing. No peripheral edema. NEUROLOGICAL: Cranial nerves II-XII intact. Normal speech. Normal gait. SKIN: Warm, dry, normal turgor, no rashes or lesions noted, normal capillary refill. LABS Laboratory Results - last 24 hr 11/08/18 11/08/18 05:30 05:30 WBC 5.6 RBC 3.85 Hgb 10.1 L Hct 30.8 L MCV 80.0 MCH 26.3 MCHC 32.9 RDW 15.7 H Plt Count 335 MPV 7.5 Absolute Neuts (auto) 3.8 Neutrophils % 68.4 Neutrophils % (Manual) 65.0 Band Neutrophils % 0.0 Lymphocytes % 19.0 D Lymphocytes % (Manual) 20.0 Monocytes % 7.1 Monocytes % (Manual) 7 Eosinophils % 4.8 H D Eosinophils % (Manual) 3.0 Basophils % 0.7 Basophils % (Manual) 1.0 Myelocytes % (Man) 0 Promyelocytes % (Man) 0 Blast Cells % (Manual) 0 Nucleated RBC % 0 Metamyelocytes 0 Hypochromia 0 Platelet Estimate Normal Polychromasia 1+ Poikilocytosis 0 Anisocytosis 1+ Microcytosis 1+ Macrocytosis 0 Ovalocytes 1+ Sodium 141 Potassium 3.4 L Chloride 107 Carbon Dioxide 25 Anion Gap 9 BUN 12 Creatinine 0.4 L Est GFR (CKD-EPI)AfAm 154.22 Est GFR (CKD-EPI)NonAf 133.06 Random Glucose 78 Calcium 8.0 L Total Bilirubin 0.5 AST 10 L ALT 11 L Alkaline Phosphatase 59 Total Protein 5.6 L Albumin [address] Abdomen and pelvis: There is a small right pleural effusion also noted. A small amount of ascites is noted within the upper abdomen. There are moderately distended loops of small bowel throughout the abdomen and pelvis. Air and stool is seen within a nondistended right colon. An air-filled transverse colon is noted. The left colon is largely collapsed. This appearance is consistent with a high-grade partial SBO that has not significantly changed since a prior study of earlier in the day. The etiology of the obstruction is uncertain. The site of obstruction is most likely within the right lower quadrant but cannot be definitely determined, as well as. The liver, spleen, pancreas, adrenal glands and kidneys demonstrate no significant abnormalities. There is no evidence of pneumoperitoneum or intra-abdominal abscess. Examination of the pelvis demonstrates an enlarged uterus that most likely represents leiomyomata. There appears to be a cystic right adnexal mass, but, this is difficult to differentiate from the distended bowel loops. Pelvic ultrasonography may be warranted. There is no evidence of acute bony pathology. IMPRESSION: Findings consistent with high-grade, partial SBO that has not significantly changed since a prior study of earlier in the day. Clinical correlation and continued follow-up recommended. Please see above discussion. Reported By: Delvin Teran MD 11/06/18 0847 [id number] RAD/ABDOMEN FLAT & UPRIGHT Indication: Abdominal pain, small bowel obstruction seen on yesterday's imaging. Comparison study available from 11/06/2018. Less distention of small bowel loops noted as compared to prior imaging. Contrast previously seen within the large bowel is presently noted within the rectum. Some persistent dilated loops of small bowel noted in the epigastric region. No free air noted in the upright study. Less bowel wall edema is noted on the present study. Impression: Less prominent small bowel distention as compared to prior imaging. No free air noted. Reported By: Aiden Patten MD 11/08/18 1254 HOSPITAL COURSE: Date of Admission:11/05/18 Date of Discharge: 11/08/18 37 y/o F p/w complaint of pain abdomen and diagnosed with small bowel obstruction. presented from [place] since she was having N/V with high grade SBO. As per patient, was at [facility] and was discharged from there for having ovarian ruptured cyst and was told to go to [facility].admitted for having High grade SBO. # High grade partial SBO : improved w/ conservative tx. pain ctl and NGT. imaging noted above. pt sxs now improved, NGT removed, and tolerating clear liquid diet w/ +BMs +flatus. repeat Xray of abdomen improved . abdominal flat and upright less prominent Small bowel distention. no free air noted. -GI consulted, Gustavo -Surgery consulted, Jose Cruz -pt told to f/u w/ Surgery Dr. Billingsley as outpt for re-eval. #Enlarged Uterus ; Leimyomata: reported on CT scan pt told to f/u w/ OBGYN outpt pt stable and ready for dc w/ appropriate f/u Minutes to complete discharge: 37 Discharge Summary Reason For Visit: RIGHT ABD PAIN Current Active Problems Small bowel obstruction (Acute) Condition: Stable - Instructions Diet, Activity, Other Instructions: you came in with a small bowel obstruction. we treated you conservatively and you improved. Please resume your home meds Examination of the pelvis on CT scan demonstrates an enlarged uterus that most likely represents leiomyomata. There appears to be a cystic right adnexal mass. Follow up with your OBGyn and have transvaginal US and repeat CT of abdomen and pelvis down the road. Please follow up with your primary care physician within 1 week Please follow up with surgeon Dr Billingsley within 1 week to re-evaluate your abdomen Please follow up with GI Dr Chen within 1 week If you experience any fever, chills, shortness of breath, worsening abdominal pain, please call 911 or go to the ER Referrals: Danis Billingsley MD [Staff Physician] - 1 Week Brian Chen MD [Staff Physician] - 1 Week Disposition: HOME - Home Medications Comprehensive Discharge Medication List: Ambulatory Orders NK [No Known Home Medication] 11/05/18 This patient is new to me today: Yes Date on this admission: 11/08/18 Emergency Visit: Yes ED Registration Date: 11/05/18 Care time: The patient presented to the Emergency Department on the above date and was hospitalized for further evaluation of their emergent condition. Critical Care patient: No - Discharge Referral Referred to [facility] No
[2018-11-08 17:19] VITALS: BP 156/90; PULSE 71; TEMP 98.1
[2018-11-08 18:03] LABS: COCAINE, UR NEGATIVE ng/ml (CUTOFF=300); METHADONE, UR NEGATIVE ng/ml (CUTOFF=300); OPIATES, URI NEGATIVE ng/ml (CUTOFF=300); PHENCYCLIDINE,URINE NEGATIVE ng/ml (CUTOFF=25); URINE AMPHETAMINES NEGATIVE ng/ml (CUTOFF=500); URINE BARBITURATES NEGATIVE ng/ml (CUTOFF=200); URINE BENZODIAZEPINES NEGATIVE ng/ml (CUTOFF=200)
== END 2018-11-08 18:07 | disposition home or self-care (01) | DRG 389 ==
LOC: FER 13:02 → J8W 21:21
PROVIDERS: ADMIT Internal Medicine; ATTEND Internal Medicine
DX: K56.600 Partial intestinal obstruction, unspecified as to cause (principal); Z68.42 Body mass index [BMI] 45.0-49.9, adult; N83.201 Unspecified ovarian cyst, right side; E66.9 Obesity, unspecified; D25.9 Leiomyoma of uterus, unspecified
CPT/HCPCS: 36415; 71045-TC-FY; 71046-TC-FY; 74019-TC-FY; 74176-TC; 74177-TC; 76705-TC; 80053; 80307; 81003; 81015; 82803; 83605; 83690; 83735; 84100; 84703; 85025; 85610; 85730; 86850; 86900; 86901; 87040; 87086; 93005; 93010; 94010; 97116-GP; 97161-GP; 99284-25; J0131; J1644; J7030